=== PATIENT | female | born 1950 | race Two or more races ===

== ENCOUNTER → 2021-07-27 | Outpatient (CLI) | payer MEDICARE, OTHER ==
[2015-04-15 17:19] VITALS: BP 73/46
[~2021-07-27] MED LIST: ACYC200C84 PO; ASPI81TA50 PO; GABA-585 PO; HYDR12.58 PO; IOHEXOL 240 MG/ML 50ML VIAL. ONE; IOHEXOL 240 MG/ML 50ML VIAL. PO ONE; LOSA100T2 PO; SULF1TAB24 PO; [UNRECOGNIZED DRUG - CODE] IV; [UNRECOGNIZED DRUG - CODE] PO; [UNRECOGNIZED DRUG - OTHER]
--- NOTE | 2021-07-27 12:50 | RAD ---
Study: CT abdomen/pelvis without intravenous contrast Indication: Right lower quadrant pain. Provided history of multiple myeloma and end-stage renal disea se. Comparison: None. Technique: Helical CT imaging performed of the abdomen and pelvis without the use of intravenous cont rast. 30 cc Omnipaque 240 oral contrast was administered. Sagittal and coronal reformats were obtaine d. One or more of the following individualized dose reduction techniques were utilized for this examinat ion: 1. Automated exposure control 2. Adjustment of the mA and/or kV according to patient size 3. Use of iterative reconstruction technique. Findings: Calcific coronary artery disease. Mitral and aortic annular mineralization. Circumferential wall thic kening of the distal esophagus. No surrounding lymphadenopathy or fluid. Bibasilar atelectasis. No co nfluent infiltrate. Undulating hepatic margins and mild prominence of the caudate lobe could indicate cirrhosis. No discr ete liver lesion considering the absence of contrast. Asymmetric elevation of the right hemidiaphragm . Numerous calcified gallstones. Nondilated gallbladder and biliary tree. Homogeneous attenuation of the pancreas. Upper limits of normal size of the spleen. No adrenal gland mass. Atrophic kidneys with multiple cystic foci. The larger cysts measure simple density. A few smaller ex ophytic foci measuring intermediate density such as at the upper pole of the right kidney. No hydrone phrosis. Limited evaluation of the urinary bladder secondary to luminal collapse. No appreciable wall thickening. Calcified uterine fibroids. No adnexal mass. Favored formed stool centrally within the lower rectal lumen with surrounding incompletely formed sto ol. No masslike wall thickening appreciated in this region but assessment is limited. Colonic diverti culosis without diverticulitis. Mild mucosal thickening at the mid aspect of the transverse colon, im age 25 series 3, but this appears to be related to incomplete luminal distention and similar findings are seen along the ascending colon. Unremarkable appendix which contains gas and positive contrast, image 85 series 2. Positive oral contrast extends through the entirety of the small bowel in keeping with the absence of obstruction. No pathologic dilatation or pneumatosis. The small bowel with incomp lete contrast opacification is not fully assessed. Unremarkable stomach noting underdistention. Favor ed ingested radiodense material near the gastroduodenal junction. Scattered aortic and biiliac calcific atherosclerosis. Nonaneurysmal abdominal aorta. No significant lymph node enlargement. Small volume ascites. Mesenteric edema and small volume fluid within the mesenteric folds. No pneumoperitoneum. No complex body wall hernia. Soft tissue nodular fo cus at the lateral mid abdomen, image 72 series 2, favored inflammatory in origin. Diffusely heterogeneous osseous structures with lytic areas corresponds to the history of multiple my eloma. No acute pathologic fracture seen throughout the pelvis or at the hips. Chronic compression de formity of S1 and a chronic/augmented compression fracture of T9. Scattered Schmorl's nodes and chron ic superior endplate depression at L3. Background multifactorial degenerative changes. Incompletely e valuated central canal but estimated no more than moderate canal stenosis such as at L4-L5. Osseous n eural foraminal stenosis greatest at L5-S1 as well as on the left at T9-T10. Impression: 1. No acute abnormality is identified at the right lower quadrant to explain the patient's pain repo rtedly at this location. The appendix is well-visualized and is normal. No suspicious colonic wall th ickening considering the limitations of CT. No bowel obstruction, pneumatosis or perforation. 2. Small volume ascites in this patient with atrophic kidneys and a history of dialysis dependence. 3. Possible cirrhotic liver. Upper limits of normal size of the spleen. 4. Multiple renal cysts the larger of which are simple. A few intermediate density foci such as exop hytic off the upper pole of the right kidney are indeterminant. These are favored hemorrhagic/protein aceous cysts but could be further evaluated with nonemergent ultrasound. 5. Osseous manifestations of multiple myeloma. No acute pathologic fracture. Several chronic fractur es as described in the body of the report on a background of degenerative changes. 6. Nonspecific circumferential thickening of the distal esophageal wall. No findings to indicate act darline esophagitis. Correlate for any symptoms referrable to the esophagus that would warrant further ev aluation with endoscopy. 7. Additional chronic observations described in the body of the report to include multiple calcified gallstones, colonic diverticulosis, uterine fibroids and calcific coronary artery disease. Electronically signed by: MARY IYER MD (07/27/2021 12:47 PM) [facility]
== END ==
LOC: CT 10:58
PROVIDERS: ATTEND Family Medicine
DX: C90.00 Multiple myeloma not having achieved remission (principal); R18.8 Other ascites; N26.1 Atrophy of kidney (terminal); N28.1 Cyst of kidney, acquired; K57.30 Diverticulosis of large intestine without perforation or abscess without bleeding; J98.11 Atelectasis; K80.20 Calculus of gallbladder without cholecystitis without obstruction; D25.9 Leiomyoma of uterus, unspecified; I25.10 Atherosclerotic heart disease of native coronary artery without angina pectoris; K22.89 Other specified disease of esophagus; I35.1 Nonrheumatic aortic (valve) insufficiency; M43.8X8 Other specified deforming dorsopathies, sacral and sacrococcygeal region; M48.54XA Collapsed vertebra, not elsewhere classified, thoracic region, initial encounter for fracture; M48.07 Spinal stenosis, lumbosacral region; M51.46 Schmorl's nodes, lumbar region
CPT/HCPCS: 74176; Q9966